=== PATIENT | male | born 1975 | race Two or more races ===

== ENCOUNTER 2024-07-13 21:29 | Inpatient (IN) | payer MEDICARE, MEDICAID ==
[~2024-07-13] VITALS: Ht 167.6 cm; Wt 79.7 kg
[2024-07-14] MEDS: LORazepam 1 MG TABLET PO ONE (00:10)
[2024-07-14] MEDS: HALOPERIDOL 5 MG TABLET PO ONE (00:10)
[2024-07-14] MEDS ORDERED: AMLO-257 PO (00:33)
[2024-07-14] MEDS ORDERED: OMEG100014 PO (00:33)
[2024-07-14] MEDS ORDERED: ATOR40TA28 PO (00:33)
[2024-07-14] MEDS ORDERED: QUET300T2 PO (00:33)
[2024-07-14] MEDS ORDERED: LURA80TA2 PO (00:33)
[2024-07-14] MEDS ORDERED: LISI-894 PO (00:33)
[2024-07-14] MEDS ORDERED: PROP10TA73 PO (00:33)
[2024-07-14] MEDS ORDERED: FLUO-418 PO (00:33)
[2024-07-14 00:41] VITALS: O2SAT 97
[2024-07-14 00:44] LABS: BASOPHILS % (AUTO) 0.9 % (0.0-2.0); EOSINOPHILS % (AUTO) 0.8 % (1.0-6.0); HEMATOCRIT 39.7 % (41-53); HEMOGLOBIN 13.6 g/dL (13.5-17.5); LYMPHOCYTES # (AUTO) 2.5 K/uL (1.0-4.8); MEAN CORPUSCULAR HGB CONC 34.3 G/dL (31.0-37.0); MONOCYTES # (AUTO) 0.9 K/uL (0.1-1.0)
[2024-07-14 00:51] LABS: LYMPHOCYTES % (AUTO) 21.6 % (22.0-44.0); MEAN CORPUSCULAR HEMOGLOBIN 30.8 pg (26.0-34.0); MEAN CORPUSCULAR VOLUME 90 fL (80-100); MONOCYTES % (AUTO) 7.8 % (2.0-9.0); NEUTROPHILS % (AUTO) 68.9 % (40.0-70.0); PLATELET COUNT (AUTO) 305 K/uL (150-450); RED BLOOD CELL COUNT(AUTO) 4.43 MIL/uL (4.50-5.90); RED CELL DISTRIBUTION WIDTH 12.9 % (11.5-14.5); WHITE BLOOD COUNT (AUTO) 11.6 K/uL (4.5-11.0)
[2024-07-14 00:52] LABS: ANION GAP 11 mmol/L (8-16); CALCIUM, TOTAL 9.3 mg/dL (8.8-10.5); CARBON DIOXIDE 28 mmol/L (22-29); CHLORIDE 93 mmol/L (98-107); CREATININE 1.24 mg/dL (0.60-1.30); GLOMERULAR FILTR. RATE CALC > 60 mL/min (>60); GLUCOSE,RANDOM 156 mg/dL (70-110); POTASSIUM 3.5 mmol/L (3.5-5.1); SODIUM SERUM 132 mmol/L (136-145); UREA NITROGEN, BLOOD 13 mg/dL (7-18)
[2024-07-14 01:01] LABS: COVID AG,FIA SOURCE NASAL SWAB
[2024-07-14 01:02] LABS: ALCOHOL, BLOOD (SERUM) < 3 mg/dL (0-10)
[2024-07-14 01:15] LABS: SARS-COV2 (COVID) ANTIGEN,FIA Negative (Negative)
[2024-07-14 01:17] LABS: ALCOHOL, URINE DRUG SCREEN NEGATIVE (NEGATIVE); AMPHET/METH SCREEN,URINE NEGATIVE (NEGATIVE); BARBITURATE SCREEN, URINE NEGATIVE (NEGATIVE); BENZODIAZEPINES SCREEN,URINE NEGATIVE (NEGATIVE); CANNABINOID SCREEN,URINE NEGATIVE (NEGATIVE); COCAINE SCREEN,URINE NEGATIVE (NEGATIVE); METHADONE SCREEN, URINE NEGATIVE (NEGATIVE); OPIATE SCREEN,URINE NEGATIVE (NEGATIVE); PHENCYCLIDINE SCREEN,URINE NEGATIVE (NEGATIVE)
[2024-07-14] MEDS: ZOLPIDEM TARTRATE 10 MG TABLET PO PRN (02:49)
[2024-07-14 03:05] VITALS: BP 158/82; PULSE 97; RESP 18; TEMP 97.5; O2SAT 100
[2024-07-14 06:56] LABS: GLUCOMETER DEV NAME(LOC) 3E.I 2; GLUCOSE,POINT OF CARE 287 MG/DL (70-110)
[2024-07-14] MEDS ORDERED: DEXTROSE 50%-WATER 25 GM/50 ML SYRINGE IVP PRN ×2 (07:00→12:00)
[2024-07-14] MEDS: INSULIN LISPRO 100 UNITS/ML SQ PRN ×2 (07:10→11:59)
[2024-07-14] MEDS ORDERED: FLUoxetine HCL 20 MG CAPSULE PO SCH (09:00)
[2024-07-14 09:05] VITALS: BP 136/84; PULSE 77; RESP 19; TEMP 97.1; O2SAT 98
[2024-07-14] MEDS: PROPRANOLOL HCL 10 MG TABLET PO SCH ×2 (09:31→16:50)
[2024-07-14] MEDS: ATORVASTATIN CALCIUM 40 MG TABLET PO SCH (09:31)
[2024-07-14] MEDS: OMEGA-3/DHA/EPA/FISH OIL 1,000 MG CAPSULE PO SCH (09:32)
[2024-07-14] MEDS: LISINOPRIL 20 MG TABLET PO SCH (09:33)
[2024-07-14] MEDS: AmLODIPine BESYLATE 5 MG TABLET PO SCH (09:33)
[2024-07-14] MEDS: INSULIN GLARGINE,HUM.REC.ANLOG 100 UNITS/ML SQ SCH (09:35)
[2024-07-14] MEDS ORDERED: ALBUTEROL SULFATE HFA 90 MCG/PUFF 8 GM INHALER IH PRN (10:15)
[2024-07-14] MEDS ORDERED: PETROLATUM,WHITE 28 GM JELLY TP PRN (10:15)
[2024-07-14] MEDS ORDERED: IBUPROFEN 400 MG TABLET PO PRN (10:15)
[2024-07-14] MEDS ORDERED: MAG HYDROX/ALUMINUM HYD/SIMETH ES 30 ML SUSPENSION UDCUP PO PRN (10:15)
[2024-07-14] MEDS ORDERED: NICOTINE 14 MG/24 HOUR PATCH TD PRN (10:15)
[2024-07-14] MEDS ORDERED: ACETAMINOPHEN 325 MG TABLET PO PRN (10:15)
[2024-07-14] MEDS ORDERED: CloNIDine HCL 0.1 MG TABLET PO PRN (10:15)
[2024-07-14] MEDS ORDERED: LOPERAMIDE HCL 2 MG CAPSULE PO PRN (10:15)
[2024-07-14] MEDS ORDERED: DOCUSATE SODIUM 100 MG CAPSULE PO PRN (10:15)
[2024-07-14] MEDS ORDERED: MAGNESIUM HYDROXIDE SUSPENSION 30 ML UDCUP PO PRN (10:15)
[2024-07-14] MEDS ORDERED: GuaiFENesin/D-METHORPHAN [SUGAR-FREE] 200-20MG/10 ML SYRUP UDCUP PO PRN (10:15)
[2024-07-14] MEDS ORDERED: ONDANSETRON 4 MG TABLET PO PRN (10:15)
[2024-07-14 11:26] LABS: GLUCOMETER DEV NAME(LOC) 3E.I 2; GLUCOSE,POINT OF CARE 401 MG/DL (70-110)
[2024-07-14] MEDS: FLUoxetine HCL 20 MG CAPSULE PO SCH (13:10)
[2024-07-14] MEDS: LURASIDONE HCL 80 MG TABLET PO SCH (16:49)
[2024-07-14 17:30] LABS: GLUCOMETER DEV NAME(LOC) 3E.I 2; GLUCOSE,POINT OF CARE 335 MG/DL (70-110)
[2024-07-14 20:31] LABS: GLUCOMETER DEV NAME(LOC) 3E.I 2; GLUCOSE,POINT OF CARE 269 MG/DL (70-110)
[2024-07-14 20:35] VITALS: BP 141/86; PULSE 96; RESP 18; TEMP 98.1; O2SAT 97
[2024-07-14] MEDS: QUEtiapine FUMARATE 300 MG TABLET PO SCH (20:47)
[2024-07-15 06:01] LABS: GLUCOMETER DEV NAME(LOC) 3E.I 2; GLUCOSE,POINT OF CARE 235 MG/DL (70-110)
[2024-07-15] MEDS: ATORVASTATIN CALCIUM 40 MG TABLET PO SCH (08:28)
[2024-07-15] MEDS: AmLODIPine BESYLATE 5 MG TABLET PO SCH (08:29)
[2024-07-15] MEDS: LISINOPRIL 20 MG TABLET PO SCH (08:29)
[2024-07-15 10:14] LABS: HEMOGLOBIN A1C 8.5 % (3.8-5.6)
[2024-07-15 10:35] LABS: CHOL/HDL RATIO 2.9 (4.2-7.3); THYROID STIMULATING HORMONE 0.86 uIU/mL (0.36-3.74)
[2024-07-15 12:46] LABS: GLUCOMETER DEV NAME(LOC) 3EX.2; GLUCOSE,POINT OF CARE 450 MG/DL (70-110)
[2024-07-15] MEDS ORDERED: PALI234D IM (13:32)
[2024-07-15] MEDS ORDERED: INSU3INS3 SQ (13:32)
[2024-07-15] MEDS ORDERED: DULA0.75 SQ (13:32)
[2024-07-15] MEDS ORDERED: INSU100I3 SQ (13:32)
[2024-07-15] MEDS: MetFORMIN HCL 850 MG TABLET PO SCH (16:33)
[2024-07-15 17:02] VITALS: BP 132/84; PULSE 87; RESP 18; TEMP 97.2; O2SAT 99
[2024-07-15 17:06] LABS: GLUCOMETER DEV NAME(LOC) 3EX.2; GLUCOSE,POINT OF CARE 248 MG/DL (70-110)
[2024-07-15 20:35] LABS: GLUCOMETER DEV NAME(LOC) 3E.I 2; GLUCOSE,POINT OF CARE 262 MG/DL (70-110)
[2024-07-15 20:49] VITALS: BP 129/66; PULSE 71; RESP 18; TEMP 97.8; O2SAT 97
[2024-07-16 06:01] LABS: GLUCOMETER DEV NAME(LOC) 3E.I 2; GLUCOSE,POINT OF CARE 139 MG/DL (70-110)
[2024-07-16 10:30] VITALS: BP 105/64; PULSE 90; RESP 18; TEMP 97; O2SAT 97
[2024-07-16 11:30] LABS: GLUCOMETER DEV NAME(LOC) 3E.I 2; GLUCOSE,POINT OF CARE 299 MG/DL (70-110)
[2024-07-16 12:42] LABS: BASOPHILS % (AUTO) 1.5 % (0.0-2.0); EOSINOPHILS % (AUTO) 1.9 % (1.0-6.0); HEMATOCRIT 38.1 % (41-53); HEMOGLOBIN 12.8 g/dL (13.5-17.5); LYMPHOCYTES # (AUTO) 1.7 K/uL (1.0-4.8); LYMPHOCYTES % (AUTO) 17.8 % (22.0-44.0); MEAN CORPUSCULAR HEMOGLOBIN 30.6 pg (26.0-34.0); MEAN CORPUSCULAR HGB CONC 33.6 G/dL (31.0-37.0); MEAN CORPUSCULAR VOLUME 91 fL (80-100); MONOCYTES # (AUTO) 0.7 K/uL (0.1-1.0); MONOCYTES % (AUTO) 7.9 % (2.0-9.0); NEUTROPHILS # (AUTO) 6.6 K/uL (1.8-7.7); NEUTROPHILS % (AUTO) 70.9 % (40.0-70.0); PLATELET COUNT (AUTO) 270 K/uL (150-450); RED BLOOD CELL COUNT(AUTO) 4.18 MIL/uL (4.50-5.90); RED CELL DISTRIBUTION WIDTH 13.1 % (11.5-14.5); WHITE BLOOD COUNT (AUTO) 9.3 K/uL (4.5-11.0)
[2024-07-16 12:54] LABS: CALCIUM, TOTAL 9.2 mg/dL (8.8-10.5); CREATININE 1.52 mg/dL (0.60-1.30)
[2024-07-16 17:21] LABS: GLUCOMETER DEV NAME(LOC) 3E.I 2; GLUCOSE,POINT OF CARE 289 MG/DL (70-110)
[2024-07-16 20:11] LABS: GLUCOMETER DEV NAME(LOC) 3E.I 2; GLUCOSE,POINT OF CARE 351 MG/DL (70-110)
[2024-07-16 20:48] VITALS: BP 115/68; PULSE 93; RESP 18; TEMP 97.9; O2SAT 98
[2024-07-17] MEDS: HALOPERIDOL 5 MG TABLET PO PRN (01:21)
[2024-07-17] MEDS: LORazepam 2 MG TABLET PO PRN (01:21)
[2024-07-17 06:25] LABS: GLUCOMETER DEV NAME(LOC) 3E.I 2; GLUCOSE,POINT OF CARE 249 MG/DL (70-110)
[2024-07-17 08:19] VITALS: BP 136/90; PULSE 100; RESP 16; TEMP 98; O2SAT 100
[2024-07-17 12:00] LABS: GLUCOMETER DEV NAME(LOC) 3E.I 2; GLUCOSE,POINT OF CARE 287 MG/DL (70-110)
[2024-07-17 12:14] LABS: BASOPHILS % (AUTO) 0.6 % (0.0-2.0); EOSINOPHILS % (AUTO) 1.4 % (1.0-6.0); HEMATOCRIT 39.8 % (41-53); HEMOGLOBIN 13.6 g/dL (13.5-17.5); LYMPHOCYTES # (AUTO) 1.8 K/uL (1.0-4.8); LYMPHOCYTES % (AUTO) 16.5 % (22.0-44.0); MEAN CORPUSCULAR HEMOGLOBIN 30.7 pg (26.0-34.0); MEAN CORPUSCULAR HGB CONC 34.1 G/dL (31.0-37.0); MEAN CORPUSCULAR VOLUME 90 fL (80-100); MONOCYTES # (AUTO) 0.8 K/uL (0.1-1.0); MONOCYTES % (AUTO) 7.1 % (2.0-9.0); NEUTROPHILS # (AUTO) 7.9 K/uL (1.8-7.7); NEUTROPHILS % (AUTO) 74.4 % (40.0-70.0); PLATELET COUNT (AUTO) 297 K/uL (150-450); RED BLOOD CELL COUNT(AUTO) 4.42 MIL/uL (4.50-5.90); WHITE BLOOD COUNT (AUTO) 10.7 K/uL (4.5-11.0)
[2024-07-17 12:39] LABS: CALCIUM, TOTAL 9.5 mg/dL (8.8-10.5); CREATININE 1.49 mg/dL (0.60-1.30); POTASSIUM 4.6 mmol/L (3.5-5.1)
[2024-07-17 16:07] LABS: APPEARANCE,URINE CLEAR (CLEAR); BILIRUBIN,URINE NEGATIVE (NEGATIVE); COLOR,URINE COLORLESS (YELLOW); GLUCOSE, URINE (UA) >=1000 mg/dL (NEGATIVE); KETONES,URINE NEGATIVE (NEGATIVE); LEUKOCYTE ESTERASE ,URINE NEGATIVE (NEGATIVE); NITRATE,URINE NEGATIVE (NEGATIVE); OCCULT BLOOD,URINE TRACE (NEGATIVE); PROTEIN,URINE TRACE mg/dL (NEGATIVE); SPECIFIC GRAVITIY, URINE 1.006 (1.003-1.030); UROBILINOGEN,URINE <=1.0 mg/dL (<=1.0)
[2024-07-17 16:13] LABS: ALCOHOL, URINE DRUG SCREEN NEGATIVE (NEGATIVE); AMPHET/METH SCREEN,URINE NEGATIVE (NEGATIVE); BARBITURATE SCREEN, URINE NEGATIVE (NEGATIVE); BENZODIAZEPINES SCREEN,URINE NEGATIVE (NEGATIVE); CANNABINOID SCREEN,URINE NEGATIVE (NEGATIVE); COCAINE SCREEN,URINE NEGATIVE (NEGATIVE); METHADONE SCREEN, URINE NEGATIVE (NEGATIVE); OPIATE SCREEN,URINE NEGATIVE (NEGATIVE); PHENCYCLIDINE SCREEN,URINE NEGATIVE (NEGATIVE)
[2024-07-17 16:22] LABS: BACTERIA,URINE Rare /HPF (None Seen); SQUAMOUS EPITHELIAL CELL,UR Rare /LPF (None Seen); WBC,URINE 0-2 /HPF (0-5)
[2024-07-17 17:28] VITALS: BP 129/88; PULSE 95; RESP 17; TEMP 97.8; O2SAT 97
[2024-07-17 17:46] LABS: GLUCOMETER DEV NAME(LOC) 3E.I 2; GLUCOSE,POINT OF CARE 259 MG/DL (70-110)
[2024-07-17 20:51] LABS: GLUCOMETER DEV NAME(LOC) 3E.I 2; GLUCOSE,POINT OF CARE 253 MG/DL (70-110)
[2024-07-17 20:52] VITALS: BP 102/66; PULSE 96; RESP 18; TEMP 97.3; O2SAT 97
[2024-07-18 05:45] LABS: GLUCOMETER DEV NAME(LOC) 3E.I 2; GLUCOSE,POINT OF CARE 274 MG/DL (70-110)
[2024-07-18 08:55] LABS: GLUCOMETER DEV NAME(LOC) 3E.I 2; GLUCOSE,POINT OF CARE 294 MG/DL (70-110)
[2024-07-18 09:20] LABS: BASOPHILS % (AUTO) 0.8 % (0.0-2.0); EOSINOPHILS % (AUTO) 1.9 % (1.0-6.0); HEMATOCRIT 38.5 % (41-53); HEMOGLOBIN 13.1 g/dL (13.5-17.5); LYMPHOCYTES % (AUTO) 20.8 % (22.0-44.0); MEAN CORPUSCULAR HEMOGLOBIN 30.7 pg (26.0-34.0); MEAN CORPUSCULAR VOLUME 90 fL (80-100); MONOCYTES # (AUTO) 0.9 K/uL (0.1-1.0); NEUTROPHILS # (AUTO) 6.7 K/uL (1.8-7.7); NEUTROPHILS % (AUTO) 67.5 % (40.0-70.0); PLATELET COUNT (AUTO) 291 K/uL (150-450); RED BLOOD CELL COUNT(AUTO) 4.26 MIL/uL (4.50-5.90); WHITE BLOOD COUNT (AUTO) 9.9 K/uL (4.5-11.0)
[2024-07-18 09:21] LABS: CALCIUM, TOTAL 9.8 mg/dL (8.8-10.5); CREATININE 1.5 mg/dL (0.60-1.30); POTASSIUM 4.5 mmol/L (3.5-5.1)
[2024-07-18 09:38] VITALS: BP 133/88; PULSE 105; RESP 18; TEMP 97.6; O2SAT 99
[2024-07-18 11:51] LABS: GLUCOMETER DEV NAME(LOC) 3E.I 2; GLUCOSE,POINT OF CARE 273 MG/DL (70-110)
[2024-07-18 19:06] LABS: GLUCOMETER DEV NAME(LOC) 3E.I 2; GLUCOSE,POINT OF CARE 312 MG/DL (70-110)
[2024-07-18 20:06] LABS: GLUCOMETER DEV NAME(LOC) 3E.I 2; GLUCOSE,POINT OF CARE 250 MG/DL (70-110)
[2024-07-18 20:42] VITALS: BP 123/73; PULSE 94; RESP 18; TEMP 98.1; O2SAT 98
[2024-07-19 05:40] LABS: GLUCOMETER DEV NAME(LOC) 3E.I 2; GLUCOSE,POINT OF CARE 184 MG/DL (70-110)
[2024-07-19 08:03] LABS: CALCIUM, TOTAL 9.6 mg/dL (8.8-10.5); CREATININE 1.48 mg/dL (0.60-1.30); POTASSIUM 4.3 mmol/L (3.5-5.1)
[2024-07-19 10:21] VITALS: BP 140/77; PULSE 100; RESP 18; TEMP 97.5; O2SAT 99
[2024-07-19 11:36] LABS: GLUCOMETER DEV NAME(LOC) 3EX.2; GLUCOSE,POINT OF CARE 289 MG/DL (70-110)
[2024-07-19 17:31] LABS: GLUCOMETER DEV NAME(LOC) 3EX.2; GLUCOSE,POINT OF CARE 262 MG/DL (70-110)
[2024-07-19 20:50] LABS: GLUCOMETER DEV NAME(LOC) 3E.I 2; GLUCOSE,POINT OF CARE 354 MG/DL (70-110)
[2024-07-19 21:53] VITALS: BP 164/99; PULSE 97; RESP 18; TEMP 97.6; O2SAT 99
[2024-07-20 06:11] LABS: GLUCOMETER DEV NAME(LOC) 3E.I 2; GLUCOSE,POINT OF CARE 101 MG/DL (70-110)
[2024-07-20 07:31] LABS: CALCIUM, TOTAL 9.3 mg/dL (8.8-10.5); CREATININE 1.38 mg/dL (0.60-1.30); POTASSIUM 4.3 mmol/L (3.5-5.1)
[2024-07-20 09:33] VITALS: BP 135/83; PULSE 103; RESP 18; TEMP 98.5; O2SAT 97
[2024-07-20] MEDS ORDERED: INSLAN SQ (09:41)
[2024-07-20] MEDS ORDERED: AMLO-257 PO (09:41)
[2024-07-20] MEDS ORDERED: OMEG100033 PO (09:41)
[2024-07-20] MEDS ORDERED: METF-1185 PO (09:41)
[2024-07-20] MEDS ORDERED: LURA80TA2 PO (09:41)
[2024-07-20] MEDS ORDERED: ATOR40TA71 PO (09:41)
[2024-07-20] MEDS ORDERED: QUET300T19 PO (09:41)
[2024-07-20] MEDS ORDERED: PROP10TA72 PO (09:41)
[2024-07-20] MEDS ORDERED: LISI-894 PO (09:41)
[2024-07-20] MEDS ORDERED: FLUO-418 PO (09:41)
[2024-07-20 09:55] LABS: GLUCOMETER DEV NAME(LOC) 3EX.2; GLUCOSE,POINT OF CARE 143 MG/DL (70-110)
[2024-07-20 11:36] LABS: GLUCOMETER DEV NAME(LOC) 3EX.2; GLUCOSE,POINT OF CARE 166 MG/DL (70-110)
== END 2024-07-20 14:00 | disposition home or self-care (01) | DRG 885 ==
LOC: EMS 21:29 → 3EI 07-14 01:55 → 3EX 07-14 05:29
PROVIDERS: ADMIT Psychiatry & Neurology Psychiatry; ATTEND Psychiatry & Neurology Psychiatry
PROC: GZHZZZZ Group Psychotherapy (ICD-10-PCS; principal; 2024-07-14)
PROC: GZ51ZZZ Individual Psychotherapy, Behavioral (ICD-10-PCS; 2024-07-14)
DX: F20.0 Paranoid schizophrenia (principal); E11.65 Type 2 diabetes mellitus with hyperglycemia; I10 Essential (primary) hypertension; Z20.822 Contact with and (suspected) exposure to COVID-19; E78.5 Hyperlipidemia, unspecified; D72.829 Elevated white blood cell count, unspecified; Z79.899 Other long term (current) drug therapy
CPT/HCPCS: 80048; 80061; 80307; 81001; 82962; 83036; 84443; 85025; 87081; 99285; G0378; G0480; J1815